=== PATIENT | female | born 1970 | race Caucasian/White ===

== ENCOUNTER 2018-05-26 13:31 | Outpatient (REF) | payer BC, SELFPAY ==
--- NOTE | 2018-05-26 17:05 | PAPFT_PTH ---
PATIENT: BILL RIVAS LOC: [facility] U#:[id number] AGE/SX: 48/F ROOM: RE05/26/[address]: Gail Burger : 1970 BED: DIS: 05/26/2018 SPEC #: [id number] RECD: 05/28/18 12:49 STATUS: KRISTEN REFlavia #: [id number] SAVANNA: 05/26/18 17:[address]: Gail Burger DEPT: [facility] Cytology RECD BY: Maria Eugenia Carter Tissues: 1 - CX/ENDOCX FOR PAP SMEARS Procedures: PAP THIN PREP/[facility] Screening Comments: [id number] (CHLAMYDIA/GC)
[2018-06-01 14:38] LABS: Chlamydia Result Negative; GC Result Negative; Specimen Description SEE COMMENTS
== END 2018-05-26 13:51 ==
LOC: LBN 13:31
PROVIDERS: PCP Naturopath; Visit Provider Naturopath
DX: Z11.3 Encounter for screening for infections with a predominantly sexual mode of transmission (principal); Z12.4 Encounter for screening for malignant neoplasm of cervix
CPT/HCPCS: 87491; 87591; 88142